=== PATIENT | female | born 1990 | race Caucasian/White ===

== ENCOUNTER 2017-02-22 17:58 | Inpatient (IN) ==
[2017-02-22] MEDS ORDERED: ONDANSETRON 4 MG/2 ML VIAL IV STA (19:18)
[2017-02-22] MEDS ORDERED: SODIUM CHLORIDE 0.9% 500 ML IV STA (19:18)
--- NOTE | 2017-02-22 19:59 | Ultrasound Report ---
History: Vaginal bleeding Date: 02/22/2017 Study: Pelvic ultrasound Comparison exam: No previous similar Real-time ultrasound images are captured and archived. The anteverted uterus measures 11.8 x 4.0 x 6.4 cm and is without focal mass. The endometrial echo is thickened at 13 mm. The right ovary measures 23 x 15 x 18 mm; the left ovary measures 20 x 16 x 18 mm. There is no adnexal mass. There is color Doppler flow to either ovary. There is no significant free fluid in the posterior cul-de-sac. Impression: Nonspecific diffuse thickening of the endometrial echo at 13 mm. No significant findings otherwise PROCEDURE INTERPRETED AT [facility] Final Report Signed by: Dr. Jennifer Campos
[2017-02-22] MEDS ORDERED: ONDANSETRON 4 MG/2 ML VIAL ONE (20:56)
[2017-02-22 21:01] LABS: Basophils % 0.3 % (0.0-0.8); Eosinophils # 0.2 10*3/uL (0.0-0.87); Eosinophils % 2.1 % (0.00-10.9); Hematocrit 26.7 VOL% (35.7-47.0); Hemoglobin 8.4 GM/DL (12.0-16.0); Immature Granulocytes % 0.3 %; Immature Granulocytes Absolute 0.02 #; Lymphocytes # 2.9 10*3/uL (1.4-4.0); Lymphocytes % 40.4 % (21.3-54.2); Mean Corpuscular HGB Conc 31.5 GM/DL (32-36); Mean Corpuscular Hemoglobin 25 PG (27-34); Mean Platelet Volume 10.6 FL (9.6-12.0); Monocytes # 0.5 10*3/uL (0.11-0.8); Monocytes % 7.2 % (1.7-12.7); Neutrophils # 3.5 10*3/uL (1.4-7.4); Neutrophils % 49.7 % (38.7-73.9); Platelet Count 370 T/CUMM (130-400); Red Blood Count 3.38 MC/CUMM (3.8-5.5); Red Cell Distribution Width 13.9 % (9.3-17.3); White Blood Count 7.1 T/CUMM (4-12)
[2017-02-22 21:04] LABS: Apearance,Urine CLEAR (Clear); Bilirubin,Urine Negative (Negative); Blood, Urine Moderate mg/dL (Negative); Glucose,Urine (UA) Negative (Negative); Ketones,Urine Negative (Negative); Mucus,Urine Occasional /LPF (Occasional); Nitrite,Urine Negative (Negative); Protein,Urine Negative; RBC,Urine 5 /HPF (0-4); Squamous Epithelial Cell,Urine Occasional /HPF (0-10); Urine Color Yellow (Yellow); Urine Specific Gravity 1.029 (1.001-1.035); WBC,Urine <1 /HPF (0-6)
[2017-02-22 21:21] LABS: Alanine Aminotransferase 23 U/L (13-56); Albumin 3.4 G/DL (3.4-5.0); Alkaline Phosphatase 62 U/L (45-117); Aspartate Amino Transferase 17 U/L (0-37); Bilirubin,Total < 0.39 MG/DL (0.2-1.0); Blood Urea Nitrogen 16 MG/DL (7-18); Calcium 8.3 MG/DL (8.5-10.1); Glucose 93 MG/DL (74-106); Potassium 3.6 MMOL/L (3.5-5.1); Sodium 143 MMOL/L (136-145); Total Protein 6.4 G/DL (6.4-8.3)
[2017-02-22 21:23] LABS: PT Patient Result 10.7 SECS
--- NOTE | 2017-02-22 22:17 | Emergency Department Note ---
Kevon Lockhart Emily, am scribing for, and in the presence of, Kevin Ramirez MD 19: 37. Ashley Lockhart Charles R, MD, personally performed the services described in this documentation, ascribed by Ene Lund in my presence, and it is both accurate and complete . Arrival - Arrival Chief Complaint: Urogenital - Female Stated Complaint: bleeding for 3 weeks/passing clots/nausea/headache ED Nursing Triage Note: vaginal bleeding onset x 3 weeks - pt states that she has not been to [facility] in 9 years Mode of Arrival: Ambulatory Limitations: No Limitations Source: Patient Time Seen by Provider: 02/22/17 18:59 - History of Present Illness HPI Narrative: Pt is a 26 y/o female who came to ED with c/o vaginal bleeding for last 3 days and worsened today with at least 10 big blood clots today. Pt reports having lower back pain, along with experiencing dizzy spells and nausea, but denies abdomen pain. Pt states last week her legs were swelling and she had an intense migraine, but none this week. Pt has not followed up with PHARMACEUTICAL PHYSICIAN provider in 9 years. Pt admits could be a possibility. Onset (ago): day(s) Consistency: constant Severity: mild Severity scale (1-10): 3 Quality: other (bleeding) Date of Last Menstrual Period: now Allergies/Adverse Reactions: Allergies Allergy/AdvReac Type Severity Reaction Status Date / Time No Known Allergies Allergy Verified 05/03/16 14:57 Home Medications: Home Medications Medication Instructions Recorded Confirmed Type No Known Home Medications [No 02/22/17 02/22/17 History Known Home Medications] Review of System - Review of System 12 point system: reviewed and no additional remarkable complaints except as stated - Review of System Constitutional: Absent: chills, fever Respiratory: Absent: respiratory distress Cardiovascular: Absent: chest pain Gastrointestinal: Present: nausea. Absent: abdominal pain, vomiting Genitourinary female: Present: other (vaginal bleeding with 10 blood clots). Absent: dysuria Musculoskeletal: Present: lower back pain. Absent: arm pain, leg pain Skin: Absent: rash Neurological: Present: headache (now resolved), other (dizzy spells) Medical,Surgical,& Family Hx - Medical History Psychological: History of: Anxiety Disorders, ADHD, Depression Neurology: No history of: Peripheral Neuropathy - Family History Family History: noncontributory - Social History Smoking Status: Current every day smoker Frequency of Alcohol Use: None Type of Drug Use: None Marital Status: Single Functional capacity: independent ambulation Exam Vital Signs: Vital Signs Temperature 98.2 F 02/22/17 18:12 Pulse Rate 95 H 02/22/17 18:12 Respiratory Rate 20 02/22/17 18:12 Blood Pressure 144/88 02/22/17 18:12 O2 Sat by Pulse Oximetry 98 02/22/17 18:12 - General General appearance: alert, in no apparent distress, obese, other (teary eyed) - Head Head exam: Present: atraumatic, normocephalic - Eye Eye exam: Present: PERRL, EOMI. Absent: other (no pale conjuctiva) - ENT ENT exam: Present: mucous membranes moist. Absent: mucous membranes dry - Neck Neck exam: Present: full ROM. Absent: tenderness - Chest Chest inspection: Present: symmetric chest wall rise. Absent: tenderness - Respiratory Respiratory exam: Present: normal lung sounds bilaterally. Absent: respiratory distress - Cardiovascular Cardiovascular exam: Present: tachycardia, normal heart sounds - Extremities Exam Extremities exam: Present: full ROM, pedal edema (+1). Absent: tenderness - Neurological Exam Neurological exam: Present: alert, oriented X3, CN II-XII intact. Absent: motor sensory deficit - Psychiatric Psychiatric exam: Present: normal affect, normal mood - Skin Skin exam: Present: warm, dry Course - Consultations Consultation #1: Dr. Beckford will admit patient recommended transfuse 2 units of blood Time: 22:17 Results - Labs CBC & BMP: 02/22/17 20:45 02/22/17 20:45 Lab Results: I have reviewed the patients labs Labs: Laboratory Tests 02/22/17 02/22/17 20:45 20:45 WBC 7.1 RBC 3.38 L Hgb 8.4 L Hct 26.7 L MCV 79.0 L MCH 25 L MCHC 31.5 L Plt Count 370 Urine Color Yellow Urine Appearance Clear Urine pH 6.0 Ur Specific [place] 1.029 Urine Blood Moderate Urine Nitrate Negative Urine Urobilinogen 2.0 H Urine Leukocytes Negative Urine RBC 5 Urine WBC <1 Ur Squamous Epith Cells Occasional Urine Mucus Occasional Urine Test Negative Laboratory Tests 02/22/17 20:45 Chloride 108 H BUN/Creatinine Ratio 26.00 H Calcium 8.3 L - Diagnostic Findings Procedure: Ultrasound: report reviewed by me (Pelvic: Nonspecific diffuse thickening of the endometrial echo at 13 mm. No significant findings otherwise.) Disposition Clinical Impression: Vaginal bleeding, Dysfunctional uterine bleeding, Acute blood loss anemia Case discussed with: patient Disposition: Still a Patient Condition: Stable Time of Disposition: 22:21
[2017-02-22] MEDS ORDERED: ONDANSETRON 4 MG/2 ML VIAL IV PRN (23:26)
[2017-02-22] MEDS ORDERED: MAGNESIUM HYDROXIDE SUSP 30 ML UDCUP PO PRN (23:26)
[2017-02-22] MEDS ORDERED: SODIUM CHLORIDE 0.9% 250 ML IV PRN (23:26)
[2017-02-22] MEDS ORDERED: IBUPROFEN 800 MG TABLET PO PRN (23:26)
[2017-02-22] MEDS ORDERED: SODIUM CHLORIDE 0.9% 1,000 ML IV SCH (23:26)
[2017-02-22] MEDS ORDERED: BISACODYL 10 MG SUPP RECTAL PRN (23:26)
[2017-02-22] MEDS ORDERED: ACETAMINOPHEN 325 MG TABLET PO PRN (23:26)
[2017-02-23 00:32] LABS: Basophils % 0.4 % (0.0-0.8); Eosinophils # 0.2 10*3/uL (0.0-0.87); Eosinophils % 2.3 % (0.00-10.9); Hematocrit 27.1 VOL% (35.7-47.0); Hemoglobin 8.6 GM/DL (12.0-16.0); Immature Granulocytes % 0.3 %; Immature Granulocytes Absolute 0.02 #; Lymphocytes # 3.4 10*3/uL (1.4-4.0); Lymphocytes % 43.2 % (21.3-54.2); Mean Corpuscular HGB Conc 31.7 GM/DL (32-36); Mean Corpuscular Hemoglobin 25 PG (27-34); Mean Corpuscular Volume 79.9 FL (87-102); Mean Platelet Volume 10.7 FL (9.6-12.0); Monocytes # 0.6 10*3/uL (0.11-0.8); Monocytes % 7.4 % (1.7-12.7); Neutrophils # 3.6 10*3/uL (1.4-7.4); Neutrophils % 46.4 % (38.7-73.9); Platelet Count 365 T/CUMM (130-400); Red Blood Count 3.39 MC/CUMM (3.8-5.5); Red Cell Distribution Width 13.8 % (9.3-17.3); White Blood Count 7.8 T/CUMM (4-12)
[2017-02-23] MEDS ORDERED: DOCUSATE SODIUM 100 MG CAPSULE PO SCH (09:00)
[2017-02-23] MEDS ORDERED: PANTOPRAZOLE 40 MG VIAL IV SCH (09:00)
[2017-02-23 10:24] LABS: Basophils % 0.4 % (0.0-0.8); Eosinophils # 0.1 10*3/uL (0.0-0.87); Eosinophils % 2.4 % (0.00-10.9); Hemoglobin 9.4 GM/DL (12.0-16.0); Immature Granulocytes % 0.2 %; Immature Granulocytes Absolute 0.01 #; Lymphocytes # 2.2 10*3/uL (1.4-4.0); Lymphocytes % 42.6 % (21.3-54.2); Mean Corpuscular HGB Conc 32.4 GM/DL (32-36); Mean Corpuscular Hemoglobin 26 PG (27-34); Mean Corpuscular Volume 80.3 FL (87-102); Mean Platelet Volume 10.2 FL (9.6-12.0); Monocytes # 0.6 10*3/uL (0.11-0.8); Neutrophils # 2.2 10*3/uL (1.4-7.4); Neutrophils % 42.4 % (38.7-73.9); Platelet Count 305 T/CUMM (130-400); Red Blood Count 3.61 MC/CUMM (3.8-5.5); White Blood Count 5.1 T/CUMM (4-12)
[2017-02-23 10:32] LABS: Alanine Aminotransferase 21 U/L (13-56); Alkaline Phosphatase 53 U/L (45-117); Aspartate Amino Transferase 20 U/L (0-37); Bilirubin,Total < 0.39 MG/DL (0.2-1.0); Blood Urea Nitrogen 13 MG/DL (7-18); Calcium 8.1 MG/DL (8.5-10.1); Glucose 105 MG/DL (74-106); Osmolality,Calculated 282.1 MOS/KG (273-304); Potassium 3.8 MMOL/L (3.5-5.1); Sodium 142 MMOL/L (136-145); Total Protein 5.9 G/DL (6.4-8.3)
[2017-02-23 13:52] VITALS: BP 134/82
--- NOTE | 2017-02-23 14:51 | Discharge Summary ---
Hospital Course - Hospital Course Hospital Course: 26-year-old female was admitted through the emergency room last night early a.m. who complaints of passing heavy large clots and dizziness. She was seen in the emergency room where her blood count was 8 and 28, no severe abdominal pain and discomfort. She was transfused 2 units of packed RBCs bleeding was scant throughout the early part of the a.m. Examination of the abdomen was completely benign. Discussed with this patient the particular findings of a benign ultrasound and the possibility that her symptoms related to anovulatory cycles. This patient will be discharged on low overall control pills, and also iron therapy twice daily. She will be followed up with her primary care physician whereupon her care will be continued. Discharge Plan - Discharge Data Condition at Discharge: Stable Discharge Diet: advance to your usual diet, heart healthy Activity: increase activity as tolerated Hygiene: may shower Weight Bearing at Discharge: full weight bearing Driving: no restrictions Contact your physician if you experience:: fever over 101, Shortness of breath, Bleeding - Discharge Medications New Ethinyl Estrad/Norges 0.03-0.3 [Lo Ovral 28] 1 tablet PO DAILY #30 tablet Ibuprofen Tab [Motrin Tab] 800 mg PO Q8H PRN #30 tablet PRN Reason: Pain Moderate (4-7) - Follow Up or Referral - Forms/Instructions Exam - Constitutional Vitals: Period Temp Pulse Resp BP Sys/[place] Pulse Ox Last 24 Hr 95.2 F-98.3 F 69-95 16-22 87-167/39-89 97-100 General appearance: morbidly obese - Head Head exam: Present: normal inspection - Eye Eye exam: Present: EOMI Pupils: Present: KIAN - ENT ENT exam: Present: normal exam - Neck Neck exam: Present: normal inspection - Respiratory Respiratory exam: Present: clear to auscultation bilaterally - Cardiovascular Cardiovascular exam: Present: regular rate and rhythm - GI/Abdominal GI/Abdominal exam: Present: normal bowel sounds, soft - Extremities Exam Extremities exam: Present: normal inspection - Back Exam Back exam: Present: normal inspection - Neurological Exam Neurological exam: Present: alert, oriented X3 - Psychiatric Psychiatric exam: Present: normal affect - Skin Skin exam: Present: normal color Discharge Results Labs on day of discharge: Labs from last 24 hours 02/23/17 02/23/17 02/23/17 10:16 09:54 00:36 WBC 5.1 D RBC 3.61 L Hgb 9.4 L Hct 29.0 L MCV 80.3 L MCH 26 L MCHC 32.4 RDW 14.0 Plt Count 305 MPV 10.2 Neut % (Auto) 42.4 Lymph % (Auto) 42.6 Mcdowell % (Auto) 12.0 Eos % (Auto) 2.4 Baso % (Auto) 0.4 Neut # (Auto) 2.2 Lymph # (Auto) 2.2 Mcdowell # (Auto) 0.6 Eos # (Auto) 0.1 Baso # (Auto) 0.0 Immature Gran % 0.2 Nucleated RBC % 0.0 Immature Gran # 0.01 Nucleated RBCs # 0.00 INR PT Patient/Control Mix Sodium 142 Potassium 3.8 Chloride 109 H Carbon Dioxide 26 Anion Gap 10.8 BUN 13 Creatinine 0.70 GFR Calculation 167 BUN/Creatinine Ratio 18.00 Glucose 105 Calculated Osmolality 282.1 Calcium 8.1 L Total Bilirubin < 0.39 AST 20 ALT 21 Alkaline Phosphatase 53 Total Protein 5.9 L Albumin 3.0 L Globulin 2.9 Albumin/Globulin Ratio 1.0 L Urine Color Urine Appearance Urine pH Ur Specific [place] Urine Protein Urine Glucose (UA) Urine Ketones Urine Blood Urine Nitrate Urine Bilirubin Urine Urobilinogen Urine Leukocytes Urine RBC Urine WBC Ur Squamous Epith Cells Urine Mucus Ur Culture Indicated? Urine Test Blood Type B POSITIVE Antibody Screen Crossmatch 02/23/17 02/23/17 02/22/17 00:07 00:07 20:45 WBC 7.8 RBC 3.39 L Hgb 8.6 L Hct 27.1 L MCV 79.9 L MCH 25 L MCHC 31.7 L RDW 13.8 Plt Count 365 MPV 10.7 Neut % (Auto) 46.4 Lymph % (Auto) 43.2 Mcdowell % (Auto) 7.4 Eos % (Auto) 2.3 Baso % (Auto) 0.4 Neut # (Auto) 3.6 Lymph # (Auto) 3.4 Mcdowell # (Auto) 0.6 Eos # (Auto) 0.2 Baso # (Auto) 0.0 Immature Gran % 0.3 Nucleated RBC % 0.0 Immature Gran # 0.02 Nucleated RBCs # 0.00 INR PT Patient/Control Mix Sodium 143 Potassium 3.6 Chloride 108 H Carbon Dioxide 26 Anion Gap 12.6 BUN 16 Creatinine 0.60 GFR Calculation 176 BUN/Creatinine Ratio 26.00 H Glucose 93 Calculated Osmolality 285.0 Calcium 8.3 L Total Bilirubin < 0.39 AST 17 ALT 23 Alkaline Phosphatase 62 Total Protein 6.4 Albumin 3.4 Globulin 3.0 Albumin/Globulin Ratio 1.1 Urine Color Urine Appearance Urine pH Ur Specific [place] Urine Protein Urine Glucose (UA) Urine Ketones Urine Blood Urine Nitrate Urine Bilirubin Urine Urobilinogen Urine Leukocytes Urine RBC Urine WBC Ur Squamous Epith Cells Urine Mucus Ur Culture Indicated? Urine Test Blood Type B POSITIVE Antibody Screen Negative Crossmatch See Detail 02/22/17 02/22/17 02/22/17 20:45 20:45 20:45 WBC 7.1 RBC 3.38 L Hgb 8.4 L Hct 26.7 L MCV 79.0 L MCH 25 L MCHC 31.5 L RDW 13.9 Plt Count 370 MPV 10.6 Neut % (Auto) 49.7 Lymph % (Auto) 40.4 Mcdowell % (Auto) 7.2 Eos % (Auto) 2.1 Baso % (Auto) 0.3 Neut # (Auto) 3.5 Lymph # (Auto) 2.9 Mcdowell # (Auto) 0.5 Eos # (Auto) 0.2 Baso # (Auto) 0.0 Immature Gran % 0.3 Nucleated RBC % 0.0 Immature Gran # 0.02 Nucleated RBCs # 0.00 INR 1.0 PT Patient/Control Mix 10.7 Sodium Potassium Chloride Carbon Dioxide Anion Gap BUN Creatinine GFR Calculation BUN/Creatinine Ratio Glucose Calculated Osmolality Calcium Total Bilirubin AST ALT Alkaline Phosphatase Total Protein Albumin Globulin Albumin/Globulin Ratio Urine Color Yellow Urine Appearance Clear Urine pH 6.0 Ur Specific [place] 1.029 Urine Protein Negative Urine Glucose (UA) Negative Urine Ketones Negative Urine Blood Moderate Urine Nitrate Negative Urine Bilirubin Negative Urine Urobilinogen 2.0 H Urine Leukocytes Negative Urine RBC 5 Urine WBC <1 Ur Squamous Epith Cells Occasional Urine Mucus Occasional Ur Culture Indicated? Not indicated Urine Test Negative Blood Type Antibody Screen Crossmatch DS: Provider Date of admission: 02/22/17 22:21 Primary care physician: . No PCP Attending physician on admission: Jakob Beckford MD Discharging clinician: Jakob Beckford MD
== END 2017-02-23 16:55 | disposition home or self-care (01) | DRG 761 ==
LOC: N.ED 17:58 → N.EDINP 22:21 → N.OB 23:10
PROVIDERS: ADMIT Obstetrics & Gynecology; ATTEND Obstetrics & Gynecology